=== PATIENT | male | born 1950 | race Caucasian/White ===

== ENCOUNTER → 2017-10-28 | Outpatient (CLI) | payer MEDICARE ==
[2017-10-28 10:20] LABS: Basophils # (A) 0.1 k/uL (0-0.2); Basophils % (A) 1 %; Eosinophils # (A) 0.2 k/uL (0-0.7); Eosinophils % (A) 3 %; HCT 42.7 % (39.0-53.0); HGB 14.6 gm/dL (13.0-17.5); Lymphocytes # (A) 1.5 k/uL (1.0-4.8); Lymphocytes % (A) 25 %; MCH 30.7 pg (25.0-35.0); MCHC 34.2 g/dL (31.0-37.0); MCV 89.8 fL (80.0-100.0); Mean Platelet Volume 7.1; Monocytes # (A) 0.3 k/uL (0-1.0); Monocytes % (A) 6 %; Neutrophils # (A) 3.8 k/uL (1.3-7.7); Neutrophils % (A) 64 %; Platelet Count 211 k/uL (150-450); Poikilocytosis Slight; RBC 4.75 m/uL (4.30-5.90); RDW 14.3 % (11.5-15.5)
[2017-10-28 10:38] LABS: ALT 17 U/L (21-72); AST 17 U/L (17-59); Albumin 4.5 g/dL (3.5-5.0); Alkaline Phosphatase 44 U/L (38-126); Anion Gap 16 mmol/L; Blood Urea Nitrogen 39 mg/dL (9-20); Calcium 10.3 mg/dL (8.4-10.2); Carbon Dioxide 22 mmol/L (22-30); Chloride 103 mmol/L (98-107); Glucose 164 mg/dL (74-99); Potassium 5.2 mmol/L (3.5-5.1); Sodium 141 mmol/L (137-145); Total Bilirubin 0.4 mg/dL (0.2-1.3); Total Protein 7.1 g/dL (6.3-8.2)
== END | disposition home or self-care (01) ==
LOC: LABWHC1 08:55
PROVIDERS: ATTEND Psychiatry & Neurology Neurology
DX: T42.3X Poisoning by, adverse effect of and underdosing of barbiturates (principal)
CPT/HCPCS: 36415; 80053; 85025

== ENCOUNTER → 2017-11-05 | Outpatient (CLI) | payer MEDICARE ==
--- NOTE | 2017-11-05 09:22 | US ---
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 History of choroidal malignant melanoma EXAM MEASUREMENTS: Liver Length: 17.0 cm Gallbladder Wall: 0.2 cm CBD: 0.4 cm Right Kidney: 10.4 x 4.6 x 5.2 cm Difficult and limited study due to patient body habitus Pancreas: obscured by overlying midline bowel gas Liver: measures in upper limits of normal, increased attenuation, increased echogenicity, decreased visualization of vessels suggestive of fatty infiltrate Gallbladder: echoes seen within dependant portion Evidence for sonographic Vance's sign: no CBD: visualized portions wnl, limited by overlying bowel gas Right Kidney: wnl IMPRESSION: 1. Gallbladder sludge noted. 2. Probable hepatic steatosis.
== END | disposition home or self-care (01) ==
LOC: RADUSWWP 10-28 09:03
PROVIDERS: ATTEND Ophthalmology
DX: K82.8 Other specified diseases of gallbladder (principal); C69.32 Malignant neoplasm of left choroid
CPT/HCPCS: 76705

== ENCOUNTER → 2018-07-15 | Outpatient (CLI) | payer MEDICARE ==
[2018-07-15 15:54] LABS: Basophils % (A) 1 %; Eosinophils # (A) 0.2 k/uL (0-0.7); Eosinophils % (A) 3 %; HCT 42.8 % (39.0-53.0); HGB 14.1 gm/dL (13.0-17.5); Lymphocytes # (A) 1.6 k/uL (1.0-4.8); Lymphocytes % (A) 27 %; Monocytes # (A) 0.3 k/uL (0-1.0); Monocytes % (A) 6 %; Neutrophils # (A) 3.5 k/uL (1.3-7.7); Neutrophils % (A) 62 %; Platelet Count 209 k/uL (150-450); RBC 4.56 m/uL (4.30-5.90); RDW 14.8 % (11.5-15.5); WBC 5.7 k/uL (3.8-10.6)
[2018-07-16 03:56] LABS: Anion Gap 10.8 mmol/L (4.00-12.00); Calcium 9.6 mg/dL (8.7-10.3); Carbon Dioxide 22.2 mmol/L (21.6-31.8)
== END | disposition home or self-care (01) ==
LOC: LABWHC1 14:16
PROVIDERS: ATTEND Psychiatry & Neurology Neurology
DX: G40.909 Epilepsy, unspecified, not intractable, without status epilepticus (principal); T50.905A Adverse effect of unspecified drugs, medicaments and biological substances, initial encounter
CPT/HCPCS: 36415; 80048; 80188; 84450; 84460; 85025

== ENCOUNTER 2018-12-17 10:11 | Inpatient (IN) | payer MEDICARE ==
[2018-12-17] MEDS ORDERED: SODIUM CHLORIDE 0.9% 1,000 ML IV STA (10:33)
--- NOTE | 2018-12-17 10:37 | ED ---
Weakness HPI - General Chief complaint: Weakness Stated complaint: Weakness Time Seen by Provider: 12/17/18 10:22 Source: patient, RN notes reviewed, old records reviewed Mode of arrival: EMS Limitations: no limitations - History of Present Illness Initial comments: This is a 68-year-old male who presents emergency Department today with complaints of generalized weakness. Patient reports that he woke up today and had severe body tremors. He reports the symptoms lasted off and on for 2 hours. Patient states he went to use the restroom at one point did collapse while walking to bathroom. Patient states that he believes he has history of Parkinson's disease. 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 This feels different than his previous cataplexy attacks as it was prolonged. Patient states that he has had no fevers or chills. Patient states he is very thirsty was unable to eat or drink anything in the past few hours. Patient denies any recent nausea vomiting or diarrhea. Patient denied chest pain. He does complain of some right shoulder knee and foot pain. Patient reports he isn't having these pains prior to his falls. - Related Data Home Medications Medication Instructions Recorded Confirmed Albuterol Inhaler [Ventolin Hfa 2 puff INHALATION RT-Q6H PRN 01/14/16 12/17/18 Inhaler] Aspirin 325 mg PO DAILY 01/14/16 12/17/18 Atenolol [Tenormin] 50 mg PO QAM 01/14/16 12/17/18 Clopidogrel Bisulfate [Plavix] 75 mg PO DAILY 01/14/16 12/17/18 Fenofibrate Nanocrystallized 145 mg PO HS 01/14/16 12/17/18 [Tricor] [place]-3 Fatty Acids/Fish Oil [Fish 1 cap PO DAILY 01/14/16 12/17/18 Oil 1,000 mg Softgel] Primidone [Mysoline] 50 mg PO QAM 01/14/16 12/17/18 Primidone [Mysoline] 250 mg PO HS 01/14/16 12/17/18 Ramipril [Altace] 5 mg PO QAM 01/14/16 12/17/18 Sertraline HCl [Zoloft] 150 mg PO QAM 01/14/16 12/17/18 Simvastatin 40 mg PO HS 01/14/16 12/17/18 Vitamin B Complex 1 cap PO DAILY 01/14/16 12/17/18 clonazePAM [KlonoPIN] 1 mg PO HS 01/14/16 12/17/18 glyBURIDE [Diabeta] 5 mg PO BID 01/14/16 12/17/18 levETIRAcetam [Keppra] 500 mg PO BID 01/14/16 12/17/18 metFORMIN HCL [Glucophage] 1,000 mg PO QAM 01/14/16 12/17/18 metFORMIN HCL [Glucophage] 500 mg PO HS 01/14/16 12/17/18 Allergies Allergy/AdvReac Type Severity Reaction Status Date / Time No Known Allergies Allergy Verified 12/17/18 10:46 Review of Systems ROS Statement: Those systems with pertinent positive or pertinent negative responses have been documented in the HPI. ROS Other: All systems not noted in ROS Statement are negative. Past Medical History Past Medical History: CVA/TIA, GERD/Reflux, Hyperlipidemia, Hypertension, Neurologic Disorder, Seizure Disorder Additional Past Medical History / Comment(s): Eye cancer, cataplexy History of Any Multi-Drug Resistant Organisms: None Reported Past Surgical History: Orthopedic Surgery, Prostate Surgery Additional Past Surgical History / Comment(s): right shoulder, eye cancer surgery Past Anesthesia/Blood Transfusion Reactions: No Reported Reaction Past Psychological History: No Psychological Hx Reported Smoking Status: Never smoker Past Alcohol Use History: None Reported Past Drug Use History: None Reported - Past Family History Mother Family Medical History: Cancer Additional Family Medical History / Comment(s): mother in 1993 with liver and pacreatic cancer Father Family Medical History: Myocardial Infarction ([place]) Additional Family Medical History / Comment(s): father at age 8888 years old from a silent heart attack General Exam - General Exam Comments Initial Comments: This is a 68-year-old male. Alert and oriented 3. No significant distress. Limitations: no limitations General appearance: alert, in no apparent distress Head exam: Present: atraumatic, normocephalic, normal inspection Eye exam: Present: normal appearance, PERRL, EOMI. Absent: scleral icterus, conjunctival injection, periorbital swelling ENT exam: Present: mucous membranes dry, mucous membranes moist. Absent: normal exam Neck exam: Present: normal inspection. Absent: tenderness, meningismus, lymph adenopathy Respiratory exam: Present: normal lung sounds bilaterally. Absent: respiratory distress, wheezes, rales, rhonchi, stridor Cardiovascular Exam: Present: regular rate, normal rhythm, normal heart sounds. Absent: systolic murmur, diastolic murmur, rubs, gallop, clicks GI/Abdominal exam: Present: soft, normal bowel sounds. Absent: distended, tenderness, guarding, rebound, rigid Extremities exam: Present: normal inspection, full ROM, normal capillary refill. Absent: tenderness, pedal edema, joint swelling, calf tenderness Back exam: Present: normal inspection Neurological exam: Present: alert, oriented X3, CN II-XII intact Expanded Patient oriented to: Present: person, place, time Speech: Present: fluid speech Cranial nerves: EOM's Intact: Normal Cerebellar function: Finger to Nose: Normal Upper motor neuron: Pronator Drift: Normal (tremor noted bilaterally) Sensory exam: Upper Extremity Light Touch: Normal, Lower Extremity Light Touch: Normal Motor strength exam: RUE: 5, LUE: 5, RLE: 5, LLE: 5 Eye Response: (4) open spontaneously Motor Response: (6) obeys commands Verbal Response: (5) oriented [place] Total: 15 Psychiatric exam: Present: normal affect, normal mood Skin exam: Present: warm, dry, intact, normal color. Absent: rash Course Vital Signs 12/17/18 12/17/18 12/17/18 10:18 12:27 12:28 Temperature 98.1 F Pulse Rate 75 67 68 Respiratory 18 18 18 Rate Blood Pressure 102/65 107/57 O2 Sat by Pulse 93 L 96 Oximetry Medical Decision Making - Medical Decision Making 68-year-old male presents for short stay for generalized weakness. Patient has had complaints of chills and shakiness or 2 hours today. His past medical history cataplexy. Today he complained of a syncopal episode. At this time Patient denies any significant headache. Patient reports that today he had this severe shaking episode. Upon arrival Patient has no neurological deficits. He does have a evidence of resting tremor bilateral upper extremities. Patient was given IV fluids labwork obtained. Patient has evidence of urinary tract infection. Urine culture completed. He was given 1 g of Rocephin IV. CT of the brain was completed and shows evidence of chronic small vessel ischemia. No evidence of acute changes. Patient chest x-ray was normal. EKG was reviewed and unremarkable. Patient's lactic acid was elevated at 3.3. Patient was given another liter bolus and started on magnesium sulfate for the magnesium level I.4. Patient will be admitted this time for dehydration, urinary tract infection. - Lab Data Result diagrams: 12/17/18 10:40 12/17/18 10:40 Lab Results 12/17/18 12/17/18 12/17/18 Range/Units 10:40 10:40 10:40 WBC 9.7 (3.8-10.6) k/uL RBC 4.34 (4.30-5.90) m/uL Hgb 13.8 (13.0-17.5) gm/dL Hct 40.8 (39.0-53.0) % MCV 94.0 (80.0-100.0) fL MCH 31.8 (25.0-35.0) pg MCHC 33.8 (31.0-37.0) g/dL RDW 14.4 (11.5-15.5) % Plt Count 152 (150-450) k/uL Neutrophils % (Manual) 57 % Band Neutrophils % 42 % Lymphocytes % (Manual) 1 % Monocytes % (Manual) 1 % Metamyelocytes % 1 % Neutrophils # (Manual) 9.60 H (1.3-7.7) k/uL Lymphocytes # (Manual) 0.10 L (1.0-4.8) k/uL Monocytes # (Manual) 0.10 (0-1.0) k/uL Metamyelocytes # (Man) 0.10 H (0) k/uL Nucleated RBCs 0 (0-0) /100 WBC Toxic Granulation Present Poikilocytosis (manual Present Anisocytosis (manual) Present PT (9.0-12.0) sec INR (<1.2) APTT (22.0-30.0) sec Sodium 138 (137-145) mmol/L Potassium 5.0 (3.5-5.1) mmol/L Chloride 107 (98-107) mmol/L Carbon Dioxide 20 L (22-30) mmol/L Anion Gap 11 mmol/L BUN 26 H (9-20) mg/dL Creatinine 1.01 (0.66-1.25) mg/dL Est GFR (CKD-EPI)AfAm 89 (>60 ml/min/1.73 sqM) Est GFR (CKD-EPI)NonAf 77 (>60 ml/min/1.73 sqM) Glucose 125 H (74-99) mg/dL Plasma Lactic Acid [place] 3.3 H* (0.7-2.0) mmol/L Calcium 9.3 (8.4-10.2) mg/dL Magnesium 1.4 L (1.6-2.3) mg/dL Total Bilirubin 1.2 (0.2-1.3) mg/dL AST 26 (17-59) U/L ALT 31 (21-72) U/L Alkaline Phosphatase 40 (38-126) U/L Troponin I (0.000-0.034) ng/mL Total Protein 6.2 L (6.3-8.2) g/dL Albumin 3.9 (3.5-5.0) g/dL Urine Color Urine Appearance (Clear) Urine pH (5.0-8.0) Ur Specific [place] (1.001-1.035) Urine Protein (Negative) Urine Glucose (UA) (Negative) Urine Ketones (Negative) Urine Blood (Negative) Urine Nitrite (Negative) Urine Bilirubin (Negative) Urine Urobilinogen (<2.0) mg/dL Ur Leukocyte Esterase (Negative) Urine RBC (0-5) /hpf Urine WBC (0-5) /hpf Urine WBC Clumps (None) /hpf Urine Bacteria (None) /hpf Urine Mucus (None) /hpf 12/17/18 12/17/18 12/17/18 Range/Units 10:40 10:40 10:40 WBC (3.8-10.6) k/uL RBC (4.30-5.90) m/uL Hgb (13.0-17.5) gm/dL Hct (39.0-53.0) % MCV (80.0-100.0) fL MCH (25.0-35.0) pg MCHC (31.0-37.0) g/dL RDW (11.5-15.5) % Plt Count (150-450) k/uL Neutrophils % (Manual) % Band Neutrophils % % Lymphocytes % (Manual) % Monocytes % (Manual) % Metamyelocytes % % Neutrophils # (Manual) (1.3-7.7) k/uL Lymphocytes # (Manual) (1.0-4.8) k/uL Monocytes # (Manual) (0-1.0) k/uL Metamyelocytes # (Man) (0) k/uL Nucleated RBCs (0-0) /100 WBC Toxic Granulation Poikilocytosis (manual Anisocytosis (manual) PT 10.3 (9.0-12.0) sec INR 1.0 (<1.2) APTT 21.9 L (22.0-30.0) sec Sodium (137-145) mmol/L Potassium (3.5-5.1) mmol/L Chloride (98-107) mmol/L Carbon Dioxide (22-30) mmol/L Anion Gap mmol/L BUN (9-20) mg/dL Creatinine (0.66-1.25) mg/dL Est GFR (CKD-EPI)AfAm (>60 ml/min/1.73 sqM) Est GFR (CKD-EPI)NonAf (>60 ml/min/1.73 sqM) Glucose (74-99) mg/dL Plasma Lactic Acid [place] (0.7-2.0) mmol/L Calcium (8.4-10.2) mg/dL Magnesium (1.6-2.3) mg/dL Total Bilirubin (0.2-1.3) mg/dL AST (17-59) U/L ALT (21-72) U/L Alkaline Phosphatase (38-126) U/L Troponin I <0.012 (0.000-0.034) ng/mL Total Protein (6.3-8.2) g/dL Albumin (3.5-5.0) g/dL Urine Color Yellow Urine Appearance Turbid (Clear) Urine pH 5.5 (5.0-8.0) Ur Specific [place] 1.023 (1.001-1.035) Urine Protein 1+ H (Negative) Urine Glucose (UA) Negative (Negative) Urine Ketones Negative (Negative) Urine Blood Moderate H (Negative) Urine Nitrite Negative (Negative) Urine Bilirubin Negative (Negative) Urine Urobilinogen <2.0 (<2.0) mg/dL Ur Leukocyte Esterase Large H (Negative) Urine RBC 27 H (0-5) /hpf Urine WBC >182 H (0-5) /hpf Urine WBC Clumps Many H (None) /hpf Urine Bacteria Many H (None) /hpf Urine Mucus Few H (None) /hpf 12/17/18 11:40 EKG shows essentially normal EKG. Ventricular 69 bpm. MO interval Was 160 ms. QS ration 96 ms. QT QTc is 382/409 ms. - Radiology Data Radiology results: report reviewed No acute abdomen. Age-related changes of atrophy and possible sclerotic small vessel ischemia. Chest x-rays negative for any acute cranial primary process. Disposition Clinical Impression: Dehydration, Hypomagnesemia, Tremor observed on examination, UTI (urinary tract infection), Lactic acidosis Disposition: ADMITTED IP TO THIS HOSP Condition: Stable Is patient prescribed a controlled substance at d/c from ED?: No Referrals: Burton Cooper DO [Primary Care Provider] - 1-2 days Time of Disposition: 12:58
--- NOTE | 2018-12-17 11:12 | XR ---
EXAMINATION TYPE: XR chest 2V DATE OF EXAM: 12/17/2018 COMPARISON: 01/14/2016 INDICATION: Weakness dizziness hypertension CVA TECHNIQUE: Frontal and lateral views of the chest are obtained. FINDINGS: The heart size is normal. The pulmonary vasculature is normal. The lungs are clear. IMPRESSION: 1. No acute pulmonary process.
--- NOTE | 2018-12-17 11:26 | CT ---
EXAMINATION TYPE: CT brain wo con DATE OF EXAM: 12/17/2018 COMPARISON: Prior CT brain 01/14/2016 HISTORY: weakness CT DLP: 1052.4 mGycm Automated exposure control for dose reduction was used. Helical acquisition through the brain. FINDINGS: There is cortical atrophy present. No hemorrhage or hydrocephalus. Periventricular white matter shows patchy low attenuation. Calvarium is intact. Paranasal sinuses and mastoid air cells as visualized a re normal. There are cerebral vascular calcifications present. IMPRESSION: NO ACUTE ABNORMALITY. AGE-RELATED CHANGES OF ATROPHY AND POSSIBLE CHRONIC SMALL VESSEL ISCHEMIA.
[2018-12-17 11:37] LABS: Albumin 3.9 g/dL (3.5-5.0); Calcium 9.3 mg/dL (8.4-10.2); Total Bilirubin 1.2 mg/dL (0.2-1.3); Total Protein 6.2 g/dL (6.3-8.2)
[2018-12-17 11:41] LABS: HCT 40.8 % (39.0-53.0); HGB 13.8 gm/dL (13.0-17.5); MCH 31.8 pg (25.0-35.0); MCHC 33.8 g/dL (31.0-37.0); Mean Platelet Volume 7.4; Platelet Count 152 k/uL (150-450); Prothrombin Time 10.3 sec (9.0-12.0); RBC 4.34 m/uL (4.30-5.90); RDW 14.4 % (11.5-15.5); WBC 9.7 k/uL (3.8-10.6)
[2018-12-17 11:46] LABS: Partial Thromboplastin Time 21.9 sec (22.0-30.0)
[2018-12-17 11:51] LABS: Magnesium 1.4 mg/dL (1.6-2.3)
[2018-12-17 12:04] LABS: Appearance,Urine Turbid (Clear); Bacteria,Urine Many /hpf; Bilirubin,Urine Negative (Negative); Blood,Urine Moderate (Negative); Color,Urine Yellow; Glucose,Urine (UA) Negative (Negative); Ketones,Urine Negative (Negative); Leukocyte Esterase,Urine Large (Negative); Mucus,Urine Few /hpf; Nitrite,Urine Negative (Negative); PH, Urine 5.5 (5.0-8.0); Protein,Urine 1+ (Negative); RBC,Urine 27 /hpf (0-5); Specific Gravity,Urine 1.023 (1.001-1.035); Urobilinogen,Urine <2.0 mg/dL (<2.0); WBC,Urine >182 /hpf (0-5)
[2018-12-17 12:08] LABS: Band Neutrophils % 42 %; Metamyelocytes % 1 %; Neutrophils % (M) 57 %; Nucleated Red Blood Cells 0 /100 WBC (0-0); Total Cells Counted 200
[2018-12-17 12:09] LABS: Anisocytosis (M) Present; Poikilocytosis (M) Present; Toxic Granulation Present
[2018-12-17] MEDS ORDERED: cefTRIAXone IN SWFI 1,000 MG/10 ML SYRINGE IVP STA (12:09)
[2018-12-17] MEDS ORDERED: SODIUM CHLORIDE 0.9% 1,000 ML IV ONE (12:10)
[2018-12-17] MEDS: SODIUM CHLORIDE 0.9% 1,000 ML IV SCH ×2 (12:24→13:39)
[2018-12-17] MEDS ORDERED: ONDANSETRON 4 MG/2 ML VIAL IVP PRN (12:59)
[2018-12-17] MEDS ORDERED: ACETAMINOPHEN TAB 325 MG TAB PO PRN (12:59)
[2018-12-17] MEDS ORDERED: NALOXONE 0.4 MG/ML 1 ML VIAL IV PRN (12:59)
[2018-12-17] MEDS ORDERED: IBUPROFEN 400 MG TAB PO PRN (12:59)
[2018-12-17] MEDS ORDERED: cefTRIAXone IN SWFI 1,000 MG/10 ML SYRINGE IVP SCH (13:00)
[2018-12-17] MEDS: MAGNESIUM SULFATE-D5W PMX 1 GM in DEXTROSE/WATER 1 100ML.BAG IVPB SCH ×2 (13:39→15:31)
[2018-12-17 16:45] LABS: Glucose,Whole Blood 137 mg/dL (75-99)
[2018-12-17] MEDS ORDERED: ALBUTEROL NEBULIZED 2.5 MG/3 ML INHALATION PRN (18:26)
[2018-12-17 20:09] LABS: Glucose,Whole Blood 159 mg/dL (75-99)
[2018-12-17] MEDS: levETIRAcetam 500 MG TAB PO SCH (20:59)
[2018-12-17] MEDS: PRIMIDONE 250 MG TAB PO SCH (20:59)
[2018-12-17] MEDS: metFORMIN 500 MG TAB PO SCH (21:00)
[2018-12-17] MEDS: clonazePAM 1 MG TAB PO SCH (21:00)
[2018-12-17] MEDS: ATORVASTATIN 20 MG TAB PO SCH (21:01)
[2018-12-17] MEDS: FENOFIBRATE 160 MG TAB PO SCH (21:01)
[2018-12-17] MEDS: glipiZIDE 10 MG TAB PO SCH (21:01)
[2018-12-17] MEDS: INSULIN ASPART (NovoLOG) 100 UNIT/ML VIAL SQ SCH (21:01)
[2018-12-18 07:09] LABS: Glucose,Whole Blood 156 mg/dL (75-99)
[2018-12-18] MEDS: ASPIRIN 325 MG TAB PO SCH (08:37)
[2018-12-18] MEDS: ATENOLOL 50 MG TAB PO SCH (08:37)
[2018-12-18] MEDS: INSULIN ASPART (NovoLOG) 100 UNIT/ML VIAL SQ SCH ×4 (08:37→21:27)
[2018-12-18] MEDS: metFORMIN 500 MG TAB PO SCH ×2 (08:37→21:26)
[2018-12-18] MEDS: glipiZIDE 10 MG TAB PO SCH ×2 (08:37→21:26)
[2018-12-18] MEDS: LISINOPRIL 20 MG TAB PO SCH (08:38)
[2018-12-18] MEDS: SERTRALINE 50 MG TAB PO SCH (08:38)
[2018-12-18] MEDS: PRIMIDONE 50 MG TAB PO SCH (08:38)
[2018-12-18] MEDS: SODIUM CHLORIDE 0.9% 1,000 ML IV SCH (08:39)
[2018-12-18] MEDS: CLOPIDOGREL 75 MG TAB PO SCH (08:41)
[2018-12-18] MEDS ORDERED: PANTOPRAZOLE 40 MG/10 ML VIAL IV SCH (09:00)
[2018-12-18] MEDS: levETIRAcetam 500 MG TAB PO SCH ×2 (11:06→21:54)
[2018-12-18 11:35] LABS: Glucose,Whole Blood 123 mg/dL (75-99)
[2018-12-18 17:22] LABS: Glucose,Whole Blood 170 mg/dL (75-99)
[2018-12-18] MEDS ORDERED: Magnesium Replacement Protocol 1 EACH MISC MISCELLANE PRN (18:58)
--- NOTE | 2018-12-18 19:02 | P.HPIM ---
History of Present Illness H&P Date: 12/18/18 Chief Complaint: Congestion, weakness This is 68-year-old gentleman admitted with generalized weakness, cough, nasal congestion, chills, shakiness of one day, status post fall, in a patient with history of questionable Parkinson's disease, cataplexy and multiple other medica l issues. Denies nausea vomiting or diarrhea. Upon arrival to the ER presented with no neurological deficits. Lactic acid 3.3. Received IV fluid hydration. Received magnesium supplements for magnesium level I.4 .Chest x-ray nonacute. UA suggestive of UTI and Rocephin initiated. Urine culture now reporting gram- negative bacilli. Brain CT no acute. EKG reported normal sinus rhythm. Troponin negative. Denies chest pain, palpitations. Denies any lightheadedness dizziness or focal deficits. Afebrile on admission, T-max 101.1. Blood cultures pending. Review of Systems ROS Statement: Those systems with pertinent positive or pertinent negative responses have been documented in the HPI. ROS Other: All systems not noted in ROS Statement are negative. Past Medical History Past Medical History: Asthma, Cancer, CVA/TIA, GERD/Reflux, GI Bleed, Hyperlipidemia, Hypertension, Neurologic Disorder, Pneumonia, Seizure Disorder, Syncope Additional Past Medical History / Comment(s): Pt states he has questionable parkinson's disease, cataplexy, possible seizure disorder and pt thinks last seizure was today, 12/17/18, CVA with no residual, NIDDM type II, L eye melanoma with surgery, past stomach ulcer, chronic low back pain History of Any Multi-Drug Resistant Organisms: None Reported Past Surgical History: Orthopedic Surgery, Prostate Surgery Additional Past Surgical History / Comment(s): Rotator cuff repair right shoulder, L eye cancer surgery, colonoscopy, EGD with esophageal hole repair, TURP for BPH. Past Anesthesia/Blood Transfusion Reactions: No Reported Reaction Smoking Status: Never smoker - Past Family History Mother Family Medical History: Cancer Additional Family Medical History / Comment(s): mother in 1993 with liver and pacreatic cancer Father Family Medical History: Myocardial Infarction ([place]) Additional Family Medical History / Comment(s): father at age 8888 years old from a silent heart attack Medications and Allergies Home Medications Medication Instructions Recorded Confirmed Type Albuterol Inhaler [Ventolin Hfa 2 puff INHALATION RT-Q6H PRN 01/14/16 12/17/18 History Inhaler] Aspirin 325 mg PO DAILY 01/14/16 12/17/18 History Atenolol [Tenormin] 50 mg PO QAM 01/14/16 12/17/18 History Clopidogrel Bisulfate [Plavix] 75 mg PO DAILY 01/14/16 12/17/18 History Fenofibrate Nanocrystallized 145 mg PO HS 01/14/16 12/17/18 History [Tricor] [place]-3 Fatty Acids/Fish Oil [Fish 1 cap PO DAILY 01/14/16 12/17/18 History Oil 1,000 mg Softgel] Primidone [Mysoline] 50 mg PO QAM 01/14/16 12/17/18 History Primidone [Mysoline] 250 mg PO HS 01/14/16 12/17/18 History Ramipril [Altace] 5 mg PO QAM 01/14/16 12/17/18 History Sertraline HCl [Zoloft] 150 mg PO QA 01/14/16 12/17/18 History Simvastatin 40 mg PO HS 01/14/16 12/17/18 History Vitamin B Complex 1 cap PO DAILY 01/14/16 12/17/18 History clonazePAM [KlonoPIN] 1 mg PO HS 01/14/16 12/17/18 History glyBURIDE [Diabeta] 5 mg PO BID 01/14/16 12/17/18 History levETIRAcetam [Keppra] 500 mg PO BID 01/14/16 12/17/18 History metFORMIN HCL [Glucophage] 1,000 mg PO QA 01/14/16 12/17/18 History metFORMIN HCL [Glucophage] 500 mg PO HS 01/14/16 12/17/18 History Allergies Allergy/AdvReac Type Severity Reaction Status Date / Time No Known Allergies Allergy Verified 12/17/18 10:46 Physical Exam Vitals: Vital Signs Temp Pulse Resp BP Pulse Ox 12/18/18 17:06 98.0 F 66 19 147/75 97 12/18/18 15:00 100.1 F H 69 133/76 98 12/18/18 07:00 97.6 F 73 16 134/73 97 12/18/18 01:14 101.1 F H 70 18 126/61 94 L 12/17/18 19:30 98.3 F 68 131/63 95 Intake and Output 12/18/18 12/18/18 12/18/18 06:59 14:59 22:59 Output Total 4 Balance -4 Output: Stool 4 Other: Voiding Method Toilet Urinal Diaper # Voids 3 1 # Bowel Movements 1 PHYSICAL EXAM: VITAL SIGNS: As above GENERAL: Sitting up in bed, no acute distress HEENT: Conjunctivae normal. eyes normal. Oral mucosa moist. Nasal congestion. NECK: No JVD. No thyroid enlargement. No LNs CARDIOVASCULAR: S1, S2 muffled. No murmur RESPIRATION: Breath sounds congested ,diminished in the bases. No rhonchi or crackles. No bronchial breathing. ABDOMEN: Soft, nontender . No guarding. no masses palpable. No ascites, No hepatosplenomegaly.Bowel sounds heard. LEGS: No edema. no swelling PSYCHIATRY: Alert and oriented -3, mood and affect normal. NERVOUS SYSTEM: Cranial N 2-12 grossly normal. Mild tremors of upper extremities .Moves all 4 limbs. Diffuse weakness ,No focal deficits. Strength and sensation grossly intact. Skin: no ulcer no rash Joints: No active swelling. No inflammation. Lymphatic system. No LN neck axilla or groin. Results CBC & Chem 7: 12/17/18 10:40 12/17/18 10:40 Labs: Abnormal Lab Results - Last 24 Hours (Table) 12/17/18 12/18/18 12/18/18 Range/Units 20:06 07:04 11:33 POC Glucose (mg/dL) 159 H 156 H 123 H (75-99) mg/dL 12/18/18 Range/Units 17:20 POC Glucose (mg/dL) 170 H (75-99) mg/dL Microbiology - Last 24 Hours (Table) 12/17/18 10:40 Urine Culture - Preliminary Urine,Clean Catch Gram Neg Bacilli Thrombosis Risk Factor Assmnt - Choose All That Apply Any of the Below Risk Factors Present?: Yes Each Factor Represents 1 point: Obesity (BMI >25) Other Risk Factors: Yes Each Risk Factor Represents 2 Points: Age 61-74 years, Malignancy Other congenital or acquired thrombophilia - If yes, enter type in comment: No Thrombosis Risk Factor Assessment Total Risk Factor Score: 5 Thrombosis Risk Factor Assessment Level: High Risk Assessment and Plan Assessment: -Sepsis secondary to Acute UTI with gram-negative bacilli -Lactic acidosis -Dehydration -Reported fall -History of possible Parkinson's disease -History of cataplexy -Gastroesophageal reflux disease -Hypertension -History of GI bleed -Seizure disorder -Diabetes mellitus Plan: Continue current medication regime ,monitoring and symptomatic treatment. IV fluid hydration. Blood cultures ordered. Influenza A/P pending. Final urine cultures pending. Maintain antibiotics.pt/ot. Home meds have been reviewed and resumed accordingly. Prognosis guarded given multiple complex medical issues. Further recommendations to follow. The impression and plan of care has been dictated as directed. : I performed a history and examination of this patient, discussed the same with the dictator. I agree with the dictator's note ,documented as a scribe. Any additional findings or plans will be noted.
[2018-12-18 19:39] LABS: Glucose,Whole Blood 156 mg/dL (75-99)
[2018-12-18] MEDS: ATORVASTATIN 20 MG TAB PO SCH (21:26)
[2018-12-18] MEDS: clonazePAM 1 MG TAB PO SCH (21:26)
[2018-12-18] MEDS: PRIMIDONE 250 MG TAB PO SCH (21:27)
[2018-12-18] MEDS: FENOFIBRATE 160 MG TAB PO SCH (21:27)
[2018-12-19] MEDS: SODIUM CHLORIDE 0.9% 1,000 ML IV SCH ×3 (00:16→15:43)
[2018-12-19 07:05] LABS: Glucose,Whole Blood 130 mg/dL (75-99)
[2018-12-19] MEDS: INSULIN ASPART (NovoLOG) 100 UNIT/ML VIAL SQ SCH ×3 (07:07→17:09)
[2018-12-19 07:16] VITALS: RESP 16
[2018-12-19] MEDS: SERTRALINE 50 MG TAB PO SCH (07:17)
[2018-12-19] MEDS: PRIMIDONE 50 MG TAB PO SCH (07:17)
[2018-12-19] MEDS: glipiZIDE 10 MG TAB PO SCH (07:17)
[2018-12-19] MEDS: LISINOPRIL 20 MG TAB PO SCH (07:17)
[2018-12-19] MEDS: metFORMIN 500 MG TAB PO SCH (07:17)
[2018-12-19] MEDS: levETIRAcetam 500 MG TAB PO SCH (07:17)
[2018-12-19] MEDS: ATENOLOL 50 MG TAB PO SCH (07:18)
[2018-12-19] MEDS: CLOPIDOGREL 75 MG TAB PO SCH (07:18)
[2018-12-19] MEDS: ASPIRIN 325 MG TAB PO SCH (07:18)
[2018-12-19] MEDS ORDERED: PANTOPRAZOLE 40 MG TABLET PO SCH (07:30)
[2018-12-19 08:18] LABS: Anion Gap 5 mmol/L; Blood Urea Nitrogen 17 mg/dL (9-20); Calcium 8.6 mg/dL (8.4-10.2); Carbon Dioxide 26 mmol/L (22-30); Chloride 107 mmol/L (98-107); Glucose 153 mg/dL (74-99); Magnesium 1.8 mg/dL (1.6-2.3); Potassium 4.8 mmol/L (3.5-5.1); Sodium 138 mmol/L (137-145)
[2018-12-19 08:25] LABS: Basophils % (A) 0 %; Eosinophils # (A) 0.1 k/uL (0-0.7); Eosinophils % (A) 1 %; HCT 35.5 % (39.0-53.0); HGB 11.7 gm/dL (13.0-17.5); Lymphocytes # (A) 0.6 k/uL (1.0-4.8); Lymphocytes % (A) 10 %; MCH 31.4 pg (25.0-35.0); MCV 95.1 fL (80.0-100.0); Mean Platelet Volume 7.1; Monocytes # (A) 0.3 k/uL (0-1.0); Monocytes % (A) 5 %; Neutrophils % (A) 81 %; Platelet Count 128 k/uL (150-450); Poikilocytosis Slight; RBC 3.73 m/uL (4.30-5.90); RDW 14.2 % (11.5-15.5); WBC 6.2 k/uL (3.8-10.6)
[2018-12-19 12:21] LABS: Glucose,Whole Blood 129 mg/dL (75-99)
[2018-12-19 15:54] VITALS: BP 135/80; PULSE 60; TEMP 97.9
[2018-12-19 17:08] LABS: Glucose,Whole Blood 114 mg/dL (75-99)
--- NOTE | 2018-12-19 18:03 | P.DS ---
Providers Date of admission: 12/17/18 13:13 Expected date of discharge: 12/19/18 Attending physician: Burton Cooper Primary care physician: Burton Cooper [facility] Course: Chief Complaint: Congestion, weakness This is 68-year-old gentleman admitted with generalized weakness, cough, nasal congestion, chills, shakiness of one day, status post fall, in a patient with history of questionable Parkinson's disease, cataplexy and multiple other medic al issues. Denies nausea vomiting or diarrhea. Upon arrival to the ER presented with no neurological deficits. Lactic acid 3.3. Received IV fluid hydration. Received magnesium supplements for magnesium level I.4 .Chest x-ray nonacute. UA suggestive of UTI and Rocephin initiated. Urine culture now reporting gram- negative bacilli. Brain CT no acute. EKG reported normal sinus rhythm. Troponin negative. Denies chest pain, palpitations. Denies any lightheadedness dizziness or focal deficits. Afebrile on admission, T-max 101.1. Patient's urine culture is positive for E. coli which is pansensitive. He has been getting ceftriaxone during his hospital stay. Patient's magnesium was also taught the time of admission and it has been supplemented. Today the patient states that he is back to his baseline and wants to go home. Patient denies having any active complaints. All 13 review of systems done and are negative. Patient's vitals Vital Signs - 24 hr 12/18/18 12/19/18 12/19/18 19:07 01:01 07:14 Temperature 98.2 F 98.0 F 98.2 F Pulse Rate [ 67 75 61 Right Pulse Oximetery] Respiratory 18 16 Rate Blood Pressure 122/69 129/70 146/75 [Right Arm] O2 Sat by Pulse 93 L 98 98 Oximetry 12/19/18 12/19/18 08:19 15:00 Temperature 97.9 F Pulse Rate [ 60 Right Pulse Oximetery] Respiratory 16 Rate Blood Pressure 135/80 [Right Arm] O2 Sat by Pulse 98 99 Oximetry GENERAL EXAM GEN. APPEARANCE: alert, in no apparent distress HEAD EXAM: atraumatic, normocephalic, normal inspection EYE EXAM: normal appearance, PERRL, EOMI. Absent: scleral icterus, conjunctival injection, periorbital swelling ENT EXAM: normal exam, mucous membranes moist NECK EXAM: normal inspection. Absent: tenderness, meningismus, full ROM, lymphadenopathy RESPIRATORY EXAM: normal lung sounds bilaterally. Absent: respiratory distress, wheezes, rales, rhonchi, stridor CARDIOVASCULAR EXAM: regular rate, normal rhythm, normal heart sounds. Absent: systolic murmur, diastolic murmur, rubs, gallop, clicks GI/ABDOMINAL EXAM: soft, normal bowel sounds. Absent: distended, tenderness, guarding, rebound, rigid EXTREMITIES EXAM: normal inspection, full ROM, normal capillary refill. Absent: tenderness, pedal edema, joint swelling, calf tenderness BACK EXAM: normal inspection NEUROLOGICAL EXAM: alert, oriented X3, no focal deficits PSYCHIATRIC EXAM: normal affect, normal mood SKIN EXAM: warm, dry, intact, normal color. Absent: rash Laboratory Last Values WBC 6.2 k/uL (3.8-10.6) 12/19/18 07:37 RBC 3.73 m/uL (4.30-5.90) L 12/19/18 07:37 Hgb 11.7 gm/dL (13.0-17.5) L 12/19/18 07:37 Hct 35.5 % (39.0-53.0) L 12/19/18 07:37 MCV 95.1 fL (80.0-100.0) 12/19/18 07:37 MCH 31.4 pg (25.0-35.0) 12/19/18 07:37 MCHC 33.0 g/dL (31.0-37.0) 12/19/18 07:37 RDW 14.2 % (11.5-15.5) 12/19/18 07:37 Plt Count 128 k/uL (150-450) L 12/19/18 07:37 Neutrophils % 81 % 12/19/18 07:37 Neutrophils % (Manual) 57 % 12/17/18 10:40 Band Neutrophils % 42 % 12/17/18 10:40 Lymphocytes % 10 % 12/19/18 07:37 Lymphocytes % (Manual) 1 % 12/17/18 10:40 Monocytes % 5 % 12/19/18 07:37 Monocytes % (Manual) 1 % 12/17/18 10:40 Eosinophils % 1 % 12/19/18 07:37 Basophils % 0 % 12/19/18 07:37 Metamyelocytes % 1 % 12/17/18 10:40 Neutrophils # 5.0 k/uL (1.3-7.7) 12/19/18 07:37 Neutrophils # (Manual) 9.60 k/uL (1.3-7.7) H 12/17/18 10:40 Lymphocytes # 0.6 k/uL (1.0-4.8) L 12/19/18 07:37 Lymphocytes # (Manual) 0.10 k/uL (1.0-4.8) L 12/17/18 10:40 Monocytes # 0.3 k/uL (0-1.0) 12/19/18 07:37 Monocytes # (Manual) 0.10 k/uL (0-1.0) 12/17/18 10:40 Eosinophils # 0.1 k/uL (0-0.7) 12/19/18 07:37 Basophils # 0.0 k/uL (0-0.2) 12/19/18 07:37 Metamyelocytes # (Man) 0.10 k/uL (0) H 12/17/18 10:40 Nucleated RBCs 0 /100 WBC (0-0) 12/17/18 10:40 Toxic Granulation Present 12/17/18 10:40 Poikilocytosis Slight 12/19/18 07:37 Poikilocytosis (manual Present 12/17/18 10:40 Anisocytosis (manual) Present 12/17/18 10:40 PT 10.3 sec (9.0-12.0) 12/17/18 10:40 INR 1.0 (<1.2) 12/17/18 10:40 APTT 21.9 sec (22.0-30.0) L 12/17/18 10:40 Sodium 138 mmol/L (137-145) 12/19/18 07:37 Potassium 4.8 mmol/L (3.5-5.1) 12/19/18 07:37 Chloride 107 mmol/L (98-107) 12/19/18 07:37 Carbon Dioxide 26 mmol/L (22-30) 12/19/18 07:37 Anion Gap 5 mmol/L 12/19/18 07:37 BUN 17 mg/dL (9-20) 12/19/18 07:37 Creatinine 0.80 mg/dL (0.66-1.25) 12/19/18 07:37 Est GFR (CKD-EPI)AfAm >90 (>60 ml/min/1.73 sqM) 12/19/18 07:37 Est GFR (CKD-EPI)NonAf >90 (>60 ml/min/1.73 sqM) 12/19/18 07:37 Glucose 153 mg/dL (74-99) H 12/19/18 07:37 POC Glucose (mg/dL) 114 mg/dL (75-99) H 12/19/18 17:00 POC Glu Special Events Planner ID Paola Burgess 12/19/18 17:00 Lactic Ac Sepsis Rflx Y 12/17/18 11:46 Plasma Lactic Acid [place] 2.3 mmol/L (0.7-2.0) H* 12/17/18 16:16 Calcium 8.6 mg/dL (8.4-10.2) 12/19/18 07:37 Magnesium 1.8 mg/dL (1.6-2.3) 12/19/18 07:37 Total Bilirubin 1.2 mg/dL (0.2-1.3) 12/17/18 10:40 AST 26 U/L (17-59) 12/17/18 10:40 ALT 31 U/L (21-72) 12/17/18 10:40 Alkaline Phosphatase 40 U/L (38-126) 12/17/18 10:40 Troponin I <0.012 ng/mL (0.000-0.034) 12/17/18 10:40 Total Protein 6.2 g/dL (6.3-8.2) L 12/17/18 10:40 Albumin 3.9 g/dL (3.5-5.0) 12/17/18 10:40 Urine Color Yellow 12/17/18 10:40 Urine Appearance Turbid (Clear) 12/17/18 10:40 Urine pH 5.5 (5.0-8.0) 12/17/18 10:40 Ur Specific [place] 1.023 (1.001-1.035) 12/17/18 10:40 Urine Protein 1+ (Negative) H 12/17/18 10:40 Urine Glucose (UA) Negative (Negative) 12/17/18 10:40 Urine Ketones Negative (Negative) 12/17/18 10:40 Urine Blood Moderate (Negative) H 12/17/18 10:40 Urine Nitrite Negative (Negative) 12/17/18 10:40 Urine Bilirubin Negative (Negative) 12/17/18 10:40 Urine Urobilinogen <2.0 mg/dL (<2.0) 12/17/18 10:40 Ur Leukocyte Esterase Large (Negative) H 12/17/18 10:40 Urine RBC 27 /hpf (0-5) H 12/17/18 10:40 Urine WBC >182 /hpf (0-5) H 12/17/18 10:40 Urine WBC Clumps Many /hpf (None) H 12/17/18 10:40 Urine Bacteria Many /hpf (None) H 12/17/18 10:40 Urine Mucus Few /hpf (None) H 12/17/18 10:40 DISCHARGE DIAGNOSIS -Sepsis secondary to Acute UTI with gram-negative bacilli -Lactic acidosis -Dehydration -Reported fall -History of possible Parkinson's disease -History of cataplexy -Gastroesophageal reflux disease -Hypertension -History of GI bleed -Seizure disorder -Diabetes mellitus Plan: Patient is being discharged home on ciprofloxacin. Also sending him on magnesium supplements. He is advised to follow-up with his family care physician Dr. Cooper in 2-3 days. More than 35 minutes spent towards the discharge of the patient. Patient Condition at Discharge: Stable Plan - Discharge Summary Discharge Rx Participant: No New Discharge Prescriptions: New Ciprofloxacin HCl [Cipro] 500 mg PO Q12HR #10 tablet Magnesium Oxide 400 mg PO DAILY #30 tablet Continue Clopidogrel Bisulfate [Plavix] 75 mg PO DAILY levETIRAcetam [Keppra] 500 mg PO BID glyBURIDE [Diabeta] 5 mg PO BID metFORMIN HCL [Glucophage] 1,000 mg PO QAM Primidone [Mysoline] 50 mg PO QAM Sertraline HCl [Zoloft] 150 mg PO QAM Simvastatin 40 mg PO HS Fenofibrate Nanocrystallized [Tricor] 145 mg PO HS Primidone [Mysoline] 250 mg PO HS Ramipril [Altace] 5 mg PO QAM clonazePAM [KlonoPIN] 1 mg PO HS Atenolol [Tenormin] 50 mg PO QAM Aspirin 325 mg PO DAILY Albuterol Inhaler [Ventolin Hfa Inhaler] 2 puff INHALATION RT-Q6H PRN PRN Reason: Shortness Of Breath Vitamin B Complex 1 cap PO DAILY [place]-3 Fatty Acids/Fish Oil [Fish Oil 1,000 mg Softgel] 1 cap PO DAILY metFORMIN HCL [Glucophage] 500 mg PO HS Discharge Medication List Albuterol Inhaler [Ventolin Hfa Inhaler] 2 puff INHALATION RT-Q6H PRN 01/14/16 [History] Aspirin 325 mg PO DAILY 01/14/16 [History] Atenolol [Tenormin] 50 mg PO QAM 01/14/16 [History] Clopidogrel Bisulfate [Plavix] 75 mg PO DAILY 01/14/16 [History] Fenofibrate Nanocrystallized [Tricor] 145 mg PO HS 01/14/16 [History] [place]-3 Fatty Acids/Fish Oil [Fish Oil 1,000 mg Softgel] 1 cap PO DAILY 01/14/16 [History] Primidone [Mysoline] 50 mg PO QAM 01/14/16 [History] Primidone [Mysoline] 250 mg PO HS 01/14/16 [History] Ramipril [Altace] 5 mg PO QAM 01/14/16 [History] Sertraline HCl [Zoloft] 150 mg PO QAM 01/14/16 [History] Simvastatin 40 mg PO HS 01/14/16 [History] Vitamin B Complex 1 cap PO DAILY 01/14/16 [History] clonazePAM [KlonoPIN] 1 mg PO HS 01/14/16 [History] glyBURIDE [Diabeta] 5 mg PO BID 01/14/16 [History] levETIRAcetam [Keppra] 500 mg PO BID 01/14/16 [History] metFORMIN HCL [Glucophage] 1,000 mg PO QAM 01/14/16 [History] metFORMIN HCL [Glucophage] 500 mg PO HS 01/14/16 [History] Ciprofloxacin HCl [Cipro] 500 mg PO Q12HR #10 tablet 12/19/18 [Rx] Magnesium Oxide 400 mg PO DAILY #30 tablet 12/19/18 [Rx] Follow up Appointment(s)/Referral(s): Burton Cooper DO [Primary Care Provider] - 1-2 days
== END 2018-12-19 18:47 | disposition home or self-care (01) | DRG 872 ==
LOC: EC 10:11 → 4SSUR 13:13
PROVIDERS: ADMIT Family Medicine; ATTEND Family Medicine
DX: A41.51 Sepsis due to Escherichia coli [E. coli] (principal); N39.0 Urinary tract infection, site not specified; E87.2 Acidosis; E11.9 Type 2 diabetes mellitus without complications; E78.5 Hyperlipidemia, unspecified; E83.42 Hypomagnesemia; E86.0 Dehydration; G20 Parkinson's disease; G40.909 Epilepsy, unspecified, not intractable, without status epilepticus; I10 Essential (primary) hypertension; J45.909 Unspecified asthma, uncomplicated; K21.9 Gastro-esophageal reflux disease without esophagitis; N40.0 Benign prostatic hyperplasia without lower urinary tract symptoms; Z79.02 Long term (current) use of antithrombotics/antiplatelets; Z79.82 Long term (current) use of aspirin; Z79.84 Long term (current) use of oral hypoglycemic drugs; Z79.899 Other long term (current) drug therapy; Z82.49 Family history of ischemic heart disease and other diseases of the circulatory system; Z85.840 Personal history of malignant neoplasm of eye; Z86.73 Personal history of transient ischemic attack (TIA), and cerebral infarction without residual deficits; M54.5 Low back pain; G89.29 Other chronic pain; Z87.11 Personal history of peptic ulcer disease; G47.411 Narcolepsy with cataplexy; Z91.81 History of falling; Z87.01 Personal history of pneumonia (recurrent); Z80.0 Family history of malignant neoplasm of digestive organs
CPT/HCPCS: 36415; 70450; 71046; 80048; 80053; 81001; 83605; 83735; 84484; 85025; 85610; 85730; 87040; 87077; 87086; 87186; 94760; 96361; 96365; 96375; 99285

== ENCOUNTER → 2019-01-25 | Outpatient (CLI) | payer MEDICARE ==
--- NOTE | 2019-01-25 13:24 | MR ---
EXAMINATION TYPE: MR brain and iac wo/w con DATE OF EXAM: 01/25/2019 COMPARISON: NONE HISTORY: Vertigo CONTRAST: 12 mL Gadavist TECHNIQUE: T1-weighted sagittal, diffusion, T2, and FLAIR axial views of the brain are submitted. The high-reso lution T2 axial and postcontrast T1 axial and coronal views of the IACs are submitted. FINDINGS: There is no pathologic enhancement of the seventh and eighth cranial nerve complex. There is no acou stic neuroma. Mastoid air cells appear clear. Diffusion imaging demonstrates no diagnostic evidence of acute ischemia. There is diffuse periventricular and white matter areas of abnormal signal compatible with nonspecifi c white matter findings. Most likely etiology remote microvascular ischemia. An involvement of the in ternal and external capsule bilaterally. No enhancing masses. No midline shift. Mild generalized degenerative change. Areas of abnormal signal noted within the basal ganglia bilaterally may represent prominent Virchow-R obin spaces or tiny remote lacunar infarcts. Changes of mild chronic sinusitis with nasal septal deviation noted. Craniocervical junction maintain ed. Sella turcica has a normal appearance. IMPRESSION: 1. No evidence of cerebellopontine angle mass or acoustic schwannoma. 2. Degenerative and nonspecific white matter changes most typical remote microvascular ischemia. 3. Findings compatible with mild chronic sinusitis.
== END | disposition home or self-care (01) ==
LOC: RADMRIMAIN 11:38
PROVIDERS: ATTEND Psychiatry & Neurology Neurology
DX: R90.89 Other abnormal findings on diagnostic imaging of central nervous system (principal); I67.82 Cerebral ischemia; H81.10 Benign paroxysmal vertigo, unspecified ear
CPT/HCPCS: 70553; A9585

== ENCOUNTER → 2019-02-10 | Outpatient (CLI) | payer MEDICARE | LOC: NEUROMAIN 06:51 | PROVIDERS: ATTEND Psychiatry & Neurology Neurology | DX: R53.1 Weakness (principal) | CPT/HCPCS: 92537; 92540 ==

== ENCOUNTER → 2019-09-03 | Outpatient (CLI) | payer MEDICARE ==
--- NOTE | 2019-09-03 16:34 | MR ---
MRI CERVICAL SPINE and thoracic spine: CLINICAL HISTORY: Neck and back pain TECHNIQUE: Multiplanar, multisequence imaging of the cervical spine and thoracic is performed without contrast COMPARISON: None FINDINGS: Cervical spine: Sagittal images of the cervical spine show the craniocervical junction to appear with in normal limits. The cervical and upper thoracic spinal cord is normal in course, caliber, and sign al. Vertebral alignment is anatomic. There is multilevel spondylosis. Loss of disc height signal is present at the intervertebral levels C2-3, C3-4, C4-5, C5-6, endplate discogenic marrow signal change s are present. C2-3: Uncovertebral joint hypertrophy and facet arthropathy results in some right-sided foraminal enc roachment greater than left, anterolateral mass effect on the thecal sac is noted eccentric to the ri ght, no significant spinal stenosis. C3-4: Broad-based posterior disc bulge, endplate disc complex causes anterior mass effect on the thec al sac and some mild spinal stenosis. Foraminal encroachment is present on the right greater than lef t due to uncovertebral joint hypertrophy, facet arthropathy. C4-5: Bilateral foraminal encroachment is present. Posterior extension endplate disc complex causes a nterior mass effect on the thecal sac and possibly the anterior cervical cord, there is moderate cent ral canal stenosis. C5-6: Posterior extension endplate disc complex causes mild anterior mass effect on the thecal sac. B ilateral foraminal encroachment, no significant central stenosis. C7-T1: No significant foraminal encroachment or spinal stenosis. 1 minimal posterior disc bulge prese nt. Thoracic spine MRI: There is mild spinal curvature. Multilevel spondylosis is present. There is multi level endplate discogenic marrow signal change. Some mild loss of disc height and signal present at m ultiple intervertebral levels. No significant foraminal encroachment or significant spinal stenosis. Thoracic cord signal is maintained. Facet arthropathy changes are present at the lower thoracic spine levels. No sizable disc herniations. IMPRESSION: Degenerative disc disease, thoracic spinal curvature, multilevel foraminal encroachment n oted in the cervical spine.
== END | disposition home or self-care (01) ==
LOC: RADMRIMAIN 15:12
PROVIDERS: ATTEND Psychiatry & Neurology Neurology
DX: M50.30 Other cervical disc degeneration, unspecified cervical region (principal); M51.34 Other intervertebral disc degeneration, thoracic region; M43.8X4 Other specified deforming dorsopathies, thoracic region
CPT/HCPCS: 72141; 72146

== ENCOUNTER → 2020-03-22 | Outpatient (CLI) | payer MEDICARE ==
[~2020-03-22] MED LIST: IODINE/POTASS IOD (LUGOLS) BOTTLE TOPICAL ONE
--- NOTE | 2020-03-23 07:14 | NM ---
EXAMINATION TYPE: NM DatScan Brain SPECT DATE OF EXAM: 03/22/2020 COMPARISON: NONE HISTORY: Essential tremor TECHNIQUE: 10 drops of Lugol's solution was administered 1 hour prior to injection as a thyroid bloc zaria agent. After the administration of 4.5 mCi I-123 Ioflupane DaTscan. Images obtained [address] injection. SPECT images of the brain were acquired with axial and coronal reconstructions. FINDINGS: Normal uptake within the striata. Uptake is symmetric. IMPRESSION: Normal FELECIA scan
== END | disposition home or self-care (01) ==
LOC: RADNMMAIN 10:38
PROVIDERS: ATTEND Psychiatry & Neurology Neurology
DX: G25.0 Essential tremor (principal)
CPT/HCPCS: 78803; A9584

== ENCOUNTER → 2022-12-04 | Outpatient (CLI) | payer MEDICARE ==
[2022-12-04 11:05] LABS: ALT 11 U/L (10-49); AST 20 U/L (14-35); African American GFR (CKD) 65.3 (60.0-200.0); Albumin 4.3 g/dL (3.8-4.9); Albumin/Globulin Ratio 1.91 (1.60-3.17); Alkaline Phosphatase 38 U/L (41-126); Blood Urea Nitrogen 35.2 mg/dL (9.0-27.0); Calcium 9.7 mg/dL (8.7-10.3); Carbon Dioxide 23.6 mmol/L (20.0-27.5); Chloride 103 mmol/L (96-109); Chol/HDL Ratio 4.23 Ratio; Globulin 2.2 g/dL (1.6-3.3); Glucose 142 mg/dL (70-110); LDL Cholesterol,Calculated 83.9 mg/dL (0.0-131.0); Non-African American GFR(CKD) 56.3 (60.0-200.0); Potassium 4.9 mmol/L (3.5-5.5); Sodium 138 mmol/L (135-145); Total Protein 6.5 g/dL (6.2-8.2)
== END | disposition home or self-care (01) ==
LOC: LABWHC1 08:08
PROVIDERS: ATTEND Internal Medicine Interventional Cardiology
DX: E78.2 Mixed hyperlipidemia (principal)
CPT/HCPCS: 36415; 80053; 80061

== ENCOUNTER → 2022-12-31 | Outpatient (CLI) | payer MEDICARE ==
[2022-12-31 11:23] LABS: ALT 13 U/L (10-49); AST 17 U/L (14-35); African American GFR (CKD) 64.1 (60.0-200.0); Albumin 4.4 g/dL (3.8-4.9); Alkaline Phosphatase 38 U/L (41-126); BUN/Creat Ratio 24.69 Ratio (12.00-20.00); Blood Urea Nitrogen 32.1 mg/dL (9.0-27.0); Calcium 9.6 mg/dL (8.7-10.3); Carbon Dioxide 23.4 mmol/L (20.0-27.5); Chloride 102 mmol/L (96-109); Globulin 2.1 g/dL (1.6-3.3); Glucose 139 mg/dL (70-110); Non-African American GFR(CKD) 55.3 (60.0-200.0); Sodium 137 mmol/L (135-145); Total Protein 6.5 g/dL (6.2-8.2)
== END | disposition home or self-care (01) ==
LOC: LABWHC1 07:44
PROVIDERS: ATTEND Internal Medicine Endocrinology, Diabetes & Metabolism
DX: E11.65 Type 2 diabetes mellitus with hyperglycemia (principal)
CPT/HCPCS: 36415; 80053; 80061; 82043; 82570; 83036; 84443

== ENCOUNTER 2023-02-21 08:53 | Day surgery (SDC) | payer MEDICARE ==
[2023-02-21] MEDS ORDERED: ALPRAZolam 0.5 MG TAB PO PRN (09:05)
[2023-02-21] MEDS ORDERED: ALPRAZolam 0.25 MG TAB PO PRN (09:05)
[2023-02-21] MEDS ORDERED: NITROGLYCERIN SL TABS 0.4 MG TAB SUBLINGUAL PRN (09:05)
[2023-02-21] MEDS ORDERED: ASPIRIN 325 MG TAB PO STA (09:05)
[2023-02-21] MEDS ORDERED: SODIUM CHLORIDE 0.9% 1,000 ML in EMPTY BAG 1 BAG IV SCH (09:15)
[2023-02-21 09:24] VITALS: RESP 18; TEMP 97.9
[2023-02-21 09:24] LABS: Glucose,Whole Blood 129 mg/dL (70-110)
[2023-02-21 09:28] LABS: Basophils % (A) 0 %; Eosinophils # (A) 0.7 k/uL (0-0.7); Eosinophils % (A) 8 %; HCT 46.9 % (39.0-53.0); HGB 15.6 gm/dL (13.0-17.5); Lymphocytes # (A) 1.2 k/uL (1.0-4.8); Lymphocytes % (A) 14 %; MCH 31.6 pg (25.0-35.0); MCHC 33.2 g/dL (31.0-37.0); MCV 95.1 fL (80.0-100.0); Mean Platelet Volume 7.5; Monocytes # (A) 0.4 k/uL (0-1.0); Monocytes % (A) 5 %; Neutrophils # (A) 5.7 k/uL (1.3-7.7); Neutrophils % (A) 71 %; Platelet Count 239 k/uL (150-450); RBC 4.93 m/uL (4.30-5.90); RDW 13.8 % (11.5-15.5)
[2023-02-21 09:39] LABS: African American GFR (CKD) 71 (>60 ml/min/1.73 sqM); Anion Gap 8 mmol/L; Blood Urea Nitrogen 36 mg/dL (9-20); Calcium 9.3 mg/dL (8.4-10.2); Carbon Dioxide 25 mmol/L (22-30); Chloride 104 mmol/L (98-107); Glucose 138 mg/dL (74-99); Non-African American GFR(CKD) 61 (>60 ml/min/1.73 sqM); Sodium 137 mmol/L (137-145)
[2023-02-21 09:44] LABS: Potassium 5.6 mmol/L (3.5-5.1)
[2023-02-21] MEDS ORDERED: fentaNYL (PF) 50 MCG/ML 2 ML AMP IV ONE (10:07)
[2023-02-21] MEDS ORDERED: LIDOCAINE 1% INJ 10MG/ML (5 ML VIAL-PF) SQ ONE (10:07)
[2023-02-21] MEDS ORDERED: SODIUM CHLORIDE 0.9% 500 ML 500 ML IV ONE (10:09)
[2023-02-21] MEDS ORDERED: VERAPAMIL SYRINGE (5 MG/10 ML) INTRACORON ONE (10:13)
[2023-02-21] MEDS ORDERED: HEPARIN SODIUM 1,000 UN/ML (10ML VL) IV ONE (10:16)
[2023-02-21] MEDS ORDERED: IOPAMIDOL-370 100ML BTL INJ ONE (10:31)
[2023-02-21] MEDS ORDERED: RX INFO: IV CONTRAST WAS GIVEN 1 EACH MISC MISCELLANE PRN (10:38)
--- NOTE | 2023-02-21 10:44 | P.CARDCATH ---
Date of Procedure: 02/21/23 Description of Procedure: Cardiac Catheterization: The patient is 72-year-old male with a history of hypertension, hyperlipidemia, diabetes who has been complaining of progressive dyspnea on exertion and had an abnormal MPI. Recommendations were made regarding cardiac catheterization, the risks and the complications were discussed with the patient who is in full understanding and agreement. Procedure Description: Patient was brought to slab puller in fasting semi-sedated state after receiving Fentanyl and Benadryl achieiving moderate conscious sedated state. Using Xylocaine Anesthesia and Seldinger technique, a 6-Finnish sheath was introduced in the right radial artery . Subsequently, selective coronary angiography was performed using a 5-Finnish 3.5 bend Marta catheter. Multiple views of the coronary artery including hemiaxial views were obtained. The 5-Finnish pigtail catheter was used to cross the aortic valve and LVEDP was calculated. Following that, catheter and sheath were removed. Hemostasis was obtained with deployment of TR band . There was no immediate complication. Patient was returned to room in stable condition. Of note, the patient received a total of 5000 units of intravenous heparin as well as intra-arterial verapamil. Findings: Fluoroscopy: Calcification of the left main and proximal LAD was noted Left main: This is a large size vessel, bifurcating into LAD and left circumflex, left main has no high-grade stenosis LAD: In this vessel this morning caliber, tapers down in the distal third, gives rise to a large diagonal branch, the LAD has mild disease of 20% in the midsegment with no high-grade stenosis Left circumflex: This is a nondominant vessel giving rise to a large obtuse marginal branch, the left circumflex in the mid segment has a 20-30% plaque, the rest of the vessel has no high-grade stenosis RCA: This is a large dominant vessel, bifurcating distally into PDA and PLV. The PDA reaches to the inferoapical wall. The right coronary artery in the proximal segment has a 20% plaque, there is a 30% plaque in the distal segment prior to the bifurcation, the rest of the vessel has no high-grade stenosis Left Ventriculogram: Not performed Hemodynamics: There was no gradient across the aortic valve, LVEDP was 12-14 mmHg Conclusion: 1. Calcified left main and proximal LAD 2. Mild triple vessel disease 3. Right dominance 4. Normal LVEDP Recommendations: I have recommended to continue medical therapy with aggressive coronary risks modifications. The findings and the recommendations were discussed with the patient and the family and they were in full understanding and agreement. Duration of sedation is 27 minutes.
[2023-02-21 15:14] VITALS: BP 121/55; PULSE 58
[2023-02-21] MEDS ORDERED: NON FORMULARY DRUG (Fenofibrate Nanocrystallized [Tricor] 145 MG Tablet) PO SCH (21:00)
[2023-02-21] MEDS ORDERED: ROPINIROLE HCL 2 MG PO SCH (21:00)
[2023-02-21] MEDS ORDERED: levETIRAcetam 500 MG TAB PO SCH (21:00)
[2023-02-21] MEDS ORDERED: SIMVASTATIN 20 MG PO SCH (21:00)
[2023-02-21] MEDS ORDERED: PRIMIDONE 250 MG TAB PO SCH (21:00)
[2023-02-21] MEDS ORDERED: PIOGLITAZONE 30 MG TAB PO SCH (21:00)
[2023-02-22] MEDS ORDERED: SERTRALINE 100 MG TAB PO SCH (09:00)
[2023-02-22] MEDS ORDERED: CLOPIDOGREL 75 MG TAB PO SCH (09:00)
[2023-02-22] MEDS ORDERED: atenoloL 50 MG TAB PO SCH (09:00)
[2023-02-22] MEDS ORDERED: DAPAGLIFLOZIN PROPANEDIOL 10 MG TABLET PO SCH (09:00)
[2023-02-22] MEDS ORDERED: RAMIPRIL 5 MG PO SCH (09:00)
[2023-02-22] MEDS ORDERED: MAGNESIUM OXIDE 400 MG TAB PO SCH (09:00)
[2023-02-26] MEDS ORDERED: NON FORMULARY DRUG (Semaglutide [Ozempic] 0.25 MG/0.2 ML Each) INJ SCH (10:39)
== END 2023-02-21 15:16 | disposition home or self-care (01) ==
LOC: CATHCVL 08:53
PROVIDERS: ATTEND Internal Medicine Interventional Cardiology
DX: I25.10 Atherosclerotic heart disease of native coronary artery without angina pectoris (principal); I10 Essential (primary) hypertension; I08.3 Combined rheumatic disorders of mitral, aortic and tricuspid valves; E78.00 Pure hypercholesterolemia, unspecified; E11.9 Type 2 diabetes mellitus without complications; E66.9 Obesity, unspecified; Z68.34 Body mass index [BMI] 34.0-34.9, adult; Z86.73 Personal history of transient ischemic attack (TIA), and cerebral infarction without residual deficits; Z87.891 Personal history of nicotine dependence; Z79.02 Long term (current) use of antithrombotics/antiplatelets; Z79.82 Long term (current) use of aspirin; Z79.84 Long term (current) use of oral hypoglycemic drugs; Z79.899 Other long term (current) drug therapy
CPT/HCPCS: 99152; 99153; 93458; 80048; 85025; C1769 ×2; C1894; J2001; J3010; J1644; Q9967

== ENCOUNTER → 2023-07-21 | Outpatient (CLI) | payer MEDICARE ==
[2023-07-22 01:16] LABS: ALT 13 U/L (10-49); AST 12 U/L (14-35); Albumin 4.5 g/dL (3.8-4.9); Albumin/Globulin Ratio 1.96 Ratio (1.60-3.17); Alkaline Phosphatase 44 U/L (41-126); BUN/Creat Ratio 29.69 Ratio (12.00-20.00); Blood Urea Nitrogen 38.6 mg/dL (9.0-27.0); Calcium 9.6 mg/dL (8.7-10.3); Carbon Dioxide 25.7 mmol/L (21.6-31.8); Chloride 104 mmol/L (96-109); Chol/HDL Ratio 5.03 Ratio; Globulin 2.3 g/dL (1.6-3.3); Glucose 151 mg/dL (70-110); LDL Cholesterol,Calculated 108.4 mg/dL (0.0-131.0); Potassium 5.4 mmol/L (3.5-5.5); Sodium 141 mmol/L (135-145); Total Bilirubin 0.4 mg/dL (0.3-1.2); Total Protein 6.8 g/dL (6.2-8.2)
== END | disposition home or self-care (01) ==
LOC: LABWHC1 07:41
PROVIDERS: ATTEND Internal Medicine Interventional Cardiology
DX: E78.2 Mixed hyperlipidemia (principal)
CPT/HCPCS: 36415; 80053; 80061